=== PATIENT | male | born 1990 | race Caucasian/White ===

== ENCOUNTER 2021-10-10 18:54 | Emergency (ER) | payer OTHER ==
[2021-10-10 19:05] VITALS: BP 131/82; PULSE 90; RESP 16; TEMP 98.4
[2021-10-10] MEDS ORDERED: PENICILLIN V POTASSIUM 250 MG TAB PO STA (19:35)
[2021-10-10] MEDS ORDERED: IBUPROFEN 600 MG TAB PO STA (19:35)
--- NOTE | 2021-10-10 19:44 | ED ---
General Adult HPI - General Chief complaint: Dental/Oral Stated complaint: dental pain Time Seen by Provider: 10/10/21 19:11 Source: patient, RN notes reviewed Mode of arrival: ambulatory Limitations: no limitations - History of Present Illness Initial comments: 31-year-old male presents to the emergency department for evaluation of dental pain. Patient states he has a tooth on the right lower jaw that is bothering him. Reports he called the dentist today and was told soonest appointment available was May. Patient reports sporadic, irregular dental care. States he has several "bad teeth." Denies fever, chills, headache, difficulty swallowing, difficulty breathing, or dental trauma. - Related Data Previous Rx's Medication Instructions Recorded Ibuprofen [Motrin] 600 mg PO Q8HR PRN #30 tab 10/10/21 Penicillin V Potassium [Pen Vee K] 500 mg PO QID #40 tablet 10/10/21 Allergies Allergy/AdvReac Type Severity Reaction Status Date / Time No Known Allergies Allergy Verified 10/10/21 19:05 Review of Systems ROS Statement: Those systems with pertinent positive or pertinent negative responses have been documented in the HPI. ROS Other: All systems not noted in ROS Statement are negative. Past Medical History Past Medical History: No Reported History History of Any Multi-Drug Resistant Organisms: None Reported Past Surgical History: No Surgical Hx Reported Past Psychological History: Bipolar, Schizoaffective Disorder Smoking Status: Current every day smoker Past Alcohol Use History: Rare Past Drug Use History: None Reported General Exam Limitations: no limitations (Well-developed, well-nourished male in no acute distress. Initial temperature 98.4, pulse 90, respirations 16, blood pressure 131/82, pulse ox 97% on room air.) General appearance: alert, in no apparent distress Expanded Mouth exam: Present: normal external inspection, tongue normal. Absent: drooling, trismus, muffled voice, tongue elevation Teeth exam: Present: dental caries (#30, 31, 32), dental tenderness # (#32) Throat exam: normal inspection Neck exam: Present: normal inspection, full ROM. Absent: tenderness, meningismus, lymphadenopathy Respiratory exam: Present: normal lung sounds bilaterally. Absent: respiratory distress, wheezes, rales, rhonchi, stridor Cardiovascular Exam: Present: regular rate, normal rhythm, normal heart sounds. Absent: systolic murmur, diastolic murmur, rubs, gallop, clicks Neurological exam: Present: alert, oriented X3, CN II-XII intact Psychiatric exam: Present: normal affect, normal mood Skin exam: Present: warm, dry, intact, normal color. Absent: rash Course Vital Signs 10/10/21 19:03 Temperature 98.4 F Pulse Rate 90 Respiratory 16 Rate Blood Pressure 131/82 O2 Sat by Pulse 97 Oximetry Medical Decision Making - Medical Decision Making 31-year-old male with a past medical history of mental illness presents to the emergency department for evaluation of dental pain. Upon arrival, patient is well-appearing and in no acute distress. Vital signs are stable. He is afebrile and not tachycardic. Patient does have dental caries with tenderness at tooth #32. No traumatic injury, abscess, or facial swelling. Patient will be prescribed PenVK and given motrin for pain. He is instructed to call the dentist again for follow up care. Also provided with [facility] for an additional resource. Return parameters were discussed in detail. Patient verbalizes understanding and agrees with this plan. This patient's care was discussed with my attending . Disposition Clinical Impression: Dental caries, Dental infection Disposition: HOME SELF-CARE Condition: Stable Instructions (If sedation given, give patient instructions): Toothache (ED) Additional Instructions: Take antibiotic as directed. May take Motrin for discomfort. Oral hygiene measures such as gentle brushing of teeth and utilization of mouthwash. Follow-up with dentist as soon as possible. Contact [facility]. [facility] [place] [address]. Return to the emergency department with any new, worsening, or concerning symptoms. Prescriptions: Ibuprofen [Motrin] 600 mg PO Q8HR PRN #30 tab PRN Reason: Pain Penicillin V Potassium [Pen Vee K] 500 mg PO QID #40 tablet Is patient prescribed a controlled substance at d/c from ED?: No Referrals: None,Stated [Primary Care Provider] - 1-2 days Time of Disposition: 19:44
== END 2021-10-10 20:00 | disposition home or self-care (01) ==
LOC: EC 18:54
DX: K02.9 Dental caries, unspecified (principal); K04.7 Periapical abscess without sinus; F25.9 Schizoaffective disorder, unspecified; F31.9 Bipolar disorder, unspecified; F17.200 Nicotine dependence, unspecified, uncomplicated
CPT/HCPCS: 99282

== ENCOUNTER 2021-10-23 14:26 | Inpatient (IN) | payer MEDICAID, OTHER ==
--- NOTE | 2021-10-23 15:22 | ED ---
General Adult HPI - General Chief complaint: Psychiatric Symptoms Stated complaint: EPS eval Time Seen by Provider: 10/23/21 15:00 Source: patient, RN notes reviewed Mode of arrival: ambulatory Limitations: no limitations - History of Present Illness Initial comments: Patient is a pleasant 31-year-old male presenting to the emergency department for mental health evaluation. Patient has been depressed and had suicidal thoughts. Patient nonspecific when answering regarding plan. Patient did not sleep last night. A lujan was drinking alcohol and has been for the past month. Patient has also been using meth. No homicidal thoughts. Patient occasionally see shadows or has fears that people are watching him. - Related Data Home Medications Medication Instructions Recorded Confirmed No Known Home Medications 10/23/21 10/23/21 Allergies Allergy/AdvReac Type Severity Reaction Status Date / Time No Known Allergies Allergy Verified 10/23/21 17:21 Review of Systems ROS Statement: Those systems with pertinent positive or pertinent negative responses have been documented in the HPI. ROS Other: All systems not noted in ROS Statement are negative. Constitutional: Denies: fever Eyes: Denies: eye pain ENT: Denies: ear pain Respiratory: Denies: cough Cardiovascular: Denies: chest pain Endocrine: Denies: fatigue Gastrointestinal: Denies: abdominal pain Genitourinary: Denies: urgency Musculoskeletal: Denies: back pain Skin: Denies: rash Neurological: Denies: weakness Psychiatric: Reports: anxiety, depression, suicidal thoughts Past Medical History Past Medical History: No Reported History History of Any Multi-Drug Resistant Organisms: None Reported Past Surgical History: No Surgical Hx Reported Past Psychological History: Bipolar, Schizoaffective Disorder Smoking Status: Current every day smoker Past Alcohol Use History: Rare Past Drug Use History: None Reported General Exam Limitations: no limitations General appearance: alert, in no apparent distress Head exam: Present: normocephalic Eye exam: Present: normal appearance Neck exam: Present: normal inspection Respiratory exam: Present: normal lung sounds bilaterally Cardiovascular Exam: Present: regular rate, normal rhythm GI/Abdominal exam: Present: soft. Absent: tenderness Extremities exam: Present: normal inspection Neurological exam: Present: alert Psychiatric exam: Present: normal affect, normal mood Skin exam: Present: normal color Course Vital Signs 10/23/21 14:51 Temperature 98.0 F Pulse Rate 104 H Respiratory 20 Rate Blood Pressure 140/83 O2 Sat by Pulse 98 Oximetry Medical Decision Making - Lab Data Lab Results 10/23/21 10/23/21 Range/Units 16:37 17:45 Urine Opiates Screen Not Detected (NotDetected) Ur Oxycodone Screen Not Detected (NotDetected) Urine Methadone Screen Not Detected (NotDetected) Ur Propoxyphene Screen Not Detected (NotDetected) Ur Barbiturates Screen Not Detected (NotDetected) U Tricyclic Antidepress Not Detected (NotDetected) Ur Phencyclidine Scrn Not Detected (NotDetected) Ur Amphetamines Screen Detected H (NotDetected) U Methamphetamines Scrn Detected H (NotDetected) U Benzodiazepines Scrn Not Detected (NotDetected) Urine Cocaine Screen Not Detected (NotDetected) U Marijuana (THC) Screen Not Detected (NotDetected) Coronavirus (PCR) Not Detected (Not Detectd) Disposition Clinical Impression: Depression Disposition: ADMITTED IP TO THIS HOSP Is patient prescribed a controlled substance at d/c from ED?: No
[2021-10-23 17:06] LABS: Amphetamine Screen,Urine Detected (NotDetected); Barbiturate Screen,Urine Not Detected (NotDetected); Benzodiazepines Screen,Urine Not Detected (NotDetected); Cocaine Screen,Urine Not Detected (NotDetected); Methadone Screen, Urine Not Detected (NotDetected); Opiate Screen,Urine Not Detected (NotDetected); Oxycodone Screen, Urine Not Detected (NotDetected); Phencyclidine Screen,Urine Not Detected (NotDetected); Tricyclic Antidepressant,Urine Not Detected (NotDetected); Urn Cannabinoid Scrn Not Detected (NotDetected)
[2021-10-23] MEDS ORDERED: LORazepam 1 MG TAB PO STA (17:55)
[2021-10-23] MEDS ORDERED: ACETAMINOPHEN TAB 325 MG TAB PO PRN (22:50)
[2021-10-23] MEDS ORDERED: HALOPERIDOL LACTATE 5 MG/ML 1 ML VIAL IM PRN (22:50)
[2021-10-23] MEDS ORDERED: MAGNESIUM HYDROXIDE 2,400 MG/10 ML CUP PO PRN (22:50)
[2021-10-23] MEDS ORDERED: MAG HYDROX/AL HYDROX/SIMETH 30 ML CUP PO PRN (22:50)
[2021-10-23] MEDS ORDERED: haloperidoL 5 MG TAB PO PRN (22:52)
[2021-10-23] MEDS ORDERED: LORazepam 2 MG/ML INJ IM PRN (22:52)
[2021-10-23] MEDS ORDERED: traZODone HCL 100 MG TAB PO PRN (22:52)
[2021-10-23] MEDS: LORazepam 1 MG TAB PO PRN (22:57)
[2021-10-24] MEDS: LORazepam 1 MG TAB PO PRN ×3 (06:21→17:58)
[2021-10-24] MEDS: NICOTINE 14MG/24HR PATCH TRANSDERM SCH (08:17)
[2021-10-24] MEDS ORDERED: ZIPRASIDONE 20 MG CAP PO STA (10:59)
[2021-10-24] MEDS ORDERED: LORazepam 1 MG TAB PO PRN (11:45)
--- NOTE | 2021-10-24 11:52 | P.HP ---
Psychiatric H&P - . H&P Date: 10/24/21 History & Physical: Allergies Allergy/AdvReac Type Severity Reaction Status Date / Time No Known Allergies Allergy Verified 10/23/21 17:21 Vital Signs Temp 98.3 F 10/24/21 06:32 Pulse 103 H 10/24/21 06:32 Resp 18 10/23/21 23:01 BP 109/66 10/24/21 06:32 Pulse Ox 97 10/24/21 06:32 Intake & Output 10/23/21 10/24/21 10/24/21 18:59 06:59 18:59 Weight 77.111 kg Laboratory Last Values Urine Opiates Screen Not Detected (NotDetected) 10/23/21 16:37 Ur Oxycodone Screen Not Detected (NotDetected) 10/23/21 16:37 Urine Methadone Screen Not Detected (NotDetected) 10/23/21 16:37 Ur Propoxyphene Screen Not Detected (NotDetected) 10/23/21 16:37 Ur Barbiturates Screen Not Detected (NotDetected) 10/23/21 16:37 U Tricyclic Antidepress Not Detected (NotDetected) 10/23/21 16:37 Ur Phencyclidine Scrn Not Detected (NotDetected) 10/23/21 16:37 Ur Amphetamines Screen Detected (NotDetected) H 10/23/21 16:37 U Methamphetamines Scrn Detected (NotDetected) H 10/23/21 16:37 U Benzodiazepines Scrn Not Detected (NotDetected) 10/23/21 16:37 Urine Cocaine Screen Not Detected (NotDetected) 10/23/21 16:37 U Marijuana (THC) Screen Not Detected (NotDetected) 10/23/21 16:37 Coronavirus (PCR) Not Detected (Not Detectd) 10/23/21 17:45 10/24/21 11:52 IDENTIFYING DATA: Patient is a single, unemployed, 31-year-old male with significant history of polysubstance abuse who presented to the emergency department for mental health evaluation for increased depression and suicidal thoughts. HPI: Patient presented to the hospital on 10/23/2021 for suicidal ideation in the context of polysubstance abuse. As per EPS report, the patient reported that he was having "a rough couple of days." The patient reported that he had stopped taking his psychiatric medications approximately one month ago and he ended up using alcohol and methamphetamines because he "snapped." The patient was then asked to leave the recovery house which she was staying in. He now reports that he has had suicidal ideation with a plan to overdose or cut himself. Furthermore, the patient reports auditory hallucinations and paranoia. Upon evaluation in the psychiatric unit, the patient reports that he stopped his medications one month ago. He reports that his medications included Trileptal, trazodone, and Vistaril. He is reports that he was recently prescribed Xanax. He states that the Xanax was the medication that helped him feel the most r elaxed however does admit that he did overdose on Xanax combined with heroin in the past. The patient states that he was previously at [place] 5-6 months ago and during that admission he was diagnosed with schizoaffective disorder and discharged on a regimen including Xanax. He has been staying in a [facility] however due to his relapse into drug and alcohol use, he is now homeless. The patient is wishing to get his mental health correct in order to go to rehab so that he can return to the [facility]. In regards to mood, the patient is reporting that he feels increasingly depressed. He states that he has been having suicidal ideation. He reports that he is not sleeping and has very poor appetite. In regards to manic symptoms, the patient reports that he has very poor sleep and approximates only 3 hours of sleep per night. He does admit that he is in the context of substance use. He states that he has previously diagnosed with schizoaffective disorder. The patient does endorse significant history of psychotic symptoms. The patient reports that he experiences auditory hallucinations that are often commanding him to do things or saying mean things to him. He reports that approximately 4 years ago, he overdosed on Xanax and heroin because he heard voices telling him that he was "too p*ssy to take anything." He reported that he then overdosed or to show the voices that he was not. The patient is subsequently admitted for further evaluation and treatment. PAST PSYCHIATRIC HISTORY: Patient states that he has been previously diagnosed with schizoaffective disorder.. Patient is able to recall main previously prescribed Trileptal, trazodone, Vistaril, Seroquel, Xanax, and Ativan. He reports 1 prior psychiatric hospitalization in [place] however states that he was also hospitalized in [place]. Patient denies any psychiatric outpatient follow-up. The patient reports multiple attempts at suicide in the past. The last time being 4 years ago by an overdose on Xanax and heroin. PMH: Past Medical History: No Reported History History of Any Multi-Drug Resistant Organisms: None Reported Past Surgical History: No Surgical Hx Reported Past Psychological History: Bipolar, Schizoaffective Disorder Smoking Status: Current every day smoker Past Alcohol Use History: Rare Past Drug Use History: None Reported ALLERGIES: NO KNOWN DRUG ALLERGIES CHEMICAL DEPENDENCY HISTORY: The patient reports that he smokes 20 cigarettes per day. He admits to drinking a fifth a day of liquor for the past few weeks. He does admit that he used methamphetamines before his presentation in the hospital. He reports that his drug of choice is heroin but states it has been "a while" since he last used heroin which she does IV. The patient does admit to "speedballing" it with crack cocaine as well. FAMILY PSYCHIATRIC/SUBSTANCE USE HISTORY: The patient reports that his mother and sister have both been diagnosed with schizoaffective disorder as well. SOCIAL HISTORY: Patient is currently homeless. He was born and raised in [place], [place]. He also lives in [place] for quite some time. Prior to moving to [place] 1 month ago, the patient reports that he was living in [place] for 6-7 years. He is currently unemployed. He reports that he likes to play guitar and sing. MENTAL STATUS EXAM: General Appearance: Patient appears to be stated age is alert, directable, and attempts to cooperate. Patient appears to have slightly disheveled hygiene and grooming. Patient has numerous tattoos. Behavior: Patient is seated with elevated psychomotor activity. Speech: Patient's speech is fluent and nonpressured. Hyperverbal however nonspecific and vague. Mood/Affect: Patient reports their mood is very anxious, affect is congruent and nervous. Range of affect appears to be blunted. Suicidality/Homicidality: Patient endorses suicidal ideation but no homicidal ideation, intention, and/or plan. Perceptions: Patient denies any visual hallucinations but admits auditory hallucinations. Though content/process: The patient does report generalized paranoia towards others believing that they're constantly talking about him. Memory and concentration: AOX3, grossly intact for the purposes of this session. Can spell "WORLD" backwards Judgment and insight: poor STRENGTHS/WEAKNESSES: At this time, unable to identify patient's strengths. Weakness is that the patient engages in polysubstance abuse, has been nonadherent with medications, is currently homeless, and has no stable source of income. He also has prior attempts at suicide. INTELLECT: Below average to average IMPRESSIONS: Schizoaffective disorder, bipolar type Polysubstance abuse - including heroin, benzodiazepines, methamphetamines, and crack cocaine Nicotine dependence Alcohol use disorder PLAN: -Patient is admitted under voluntary status to [facility] for stabilization of psychiatric symptoms and safety. Patient signed adult voluntary form and medication consent and is placed in patient's chart. -Medications : Will start patient on Geodon 20 mg by mouth twice a day with meals for mood stabilization/psychosis Noonan 450 mg by mouth twice a day for mood stabilization -Ativan and Haldol PRN for agitation/aggression -CIWA protocol with Ativan PRN for ETOH withdrawal -Patient was counselled on substance abuse and desired to cut back on use. Patient wishes to go to inpatient substance abuse rehabilitation from this unit. -Patient was informed of the risks, benefits and side effects of the medication and patient verbally consented to taking the medications. Patient signed med consent form and was placed in chart. -Internal Medicine consult to perform medical evaluation and physical. -NRT - nicotine patch -SW on board for discharge planning. Encourage patient to participate in groups to work on coping skills. 10/24/21 11:52
[2021-10-24] MEDS: ZIPRASIDONE 20 MG CAP PO SCH (17:28)
--- NOTE | 2021-10-24 20:58 | P.PN ---
Progress Note - Text Progress Note Date: 10/24/21 patient refused evaluation by medicine
[2021-10-24] MEDS ORDERED: ZIPRASIDONE 20 MG CAP PO SCH (21:00)
[2021-10-24] MEDS: LITHIUM CARBONATE 150 MG CAP PO SCH (21:32)
[2021-10-25] MEDS: LORazepam 1 MG TAB PO PRN ×4 (02:04→19:57)
[2021-10-25] MEDS: NICOTINE 14MG/24HR PATCH TRANSDERM SCH (06:30)
[2021-10-25] MEDS: LITHIUM CARBONATE 150 MG CAP PO SCH (08:23)
[2021-10-25] MEDS: ZIPRASIDONE 20 MG CAP PO SCH ×2 (08:23→17:51)
[2021-10-25 10:25] LABS: Basophils # (A) 0.1 k/uL (0-0.2); Basophils % (A) 1 %; Eosinophils # (A) 0.3 k/uL (0-0.7); Eosinophils % (A) 6 %; HCT 49.1 % (39.0-53.0); HGB 16.5 gm/dL (13.0-17.5); Lymphocytes # (A) 1.8 k/uL (1.0-4.8); Lymphocytes % (A) 34 %; MCH 31.1 pg (25.0-35.0); MCHC 33.5 g/dL (31.0-37.0); MCV 92.7 fL (80.0-100.0); Mean Platelet Volume 7.7; Monocytes # (A) 0.3 k/uL (0-1.0); Monocytes % (A) 7 %; Neutrophils # (A) 2.6 k/uL (1.3-7.7); Neutrophils % (A) 50 %; Platelet Count 224 k/uL (150-450); RDW 12.4 % (11.5-15.5); WBC 5.2 k/uL (3.8-10.6)
[2021-10-25 10:38] LABS: ALT 67 U/L (4-49); AST 44 U/L (17-59); African American GFR (CKD) 78 (>60 ml/min/1.73 sqM); Albumin 4.7 g/dL (3.5-5.0); Alkaline Phosphatase 61 U/L (38-126); Anion Gap 8 mmol/L; Blood Urea Nitrogen 22 mg/dL (9-20); Calcium 9.3 mg/dL (8.4-10.2); Carbon Dioxide 29 mmol/L (22-30); Chloride 102 mmol/L (98-107); Glucose 102 mg/dL (74-99); Non-African American GFR(CKD) 67 (>60 ml/min/1.73 sqM); Potassium 4.6 mmol/L (3.5-5.1); Sodium 139 mmol/L (137-145); Total Bilirubin 0.6 mg/dL (0.2-1.3); Total Protein 8.2 g/dL (6.3-8.2)
--- NOTE | 2021-10-25 12:00 | P.PN ---
Progress Note - Text Progress Note Date: 10/25/21 Interval History: Patient was seen wandering the hallways and was directable and agreeable to speak with jingle writer in the office. The patient continues to be fixated on the thought that he has a sexually transmitted disease or that he has hepatitis C. The patient was curious as to why he has not had any blood drawn yet however review of the patient's chart reveals that the patient refused. The patient denies this however is agreeable to getting his blood drawn today. He is currently not reporting any suicidal or homicidal ideation, intention, and/or plan. He is not reporting any visual hallucinations however does endorse auditory hallucinations. He reports that they continue to be present and occasionally tell him what to do. He describes the voices as multiple voices that are clear and coherent. The patient has been adherent with his medications and is not reporting any significant side effects at this time. The patient has been noted by staff to constantly ask for Ativan for elevated anxiety. The patient has not been attending groups. He was encouraged to do so. He wishes to go to rehabilitation for his polysubstance abuse upon discharge. Mental Status Exam: General Appearance: Patient appears to be stated age is alert, directable, and cooperative. Patient has multiple tattoos. Behavior: Patient is calmly seated however displays elevated psychomotor activity. Speech: Patient's speech is fluent and nonpressured. Hyperverbal. Mood/Affect: Mood is improving mildly, affect is congruent and slightly expansive. Suicidality/Homicidality: Patient denies having any suicidal or homicidal ideation intent or plan. Perceptions: Patient denies any visual hallucinations however endorses auditory hallucinations. Though content/process: The patient is not endorsing any delusional thought content today. Thought process space to be linear and goal-directed at this time. Memory and concentration: AOX3, grossly intact for the purposes of this session Judgment and insight: Improving mildly Vital Signs Temp 97.9 F 10/25/21 02:06 Pulse 100 10/25/21 08:21 Resp 15 10/25/21 02:06 BP 145/77 10/25/21 08:21 Pulse Ox 97 10/24/21 06:32 Laboratory Results - Last 24 Hours 10/25/21 10/25/21 09:49 09:49 WBC 5.2 RBC 5.30 Hgb 16.5 Hct 49.1 MCV 92.7 MCH 31.1 MCHC 33.5 RDW 12.4 Plt Count 224 MPV 7.7 Neutrophils % 50 Lymphocytes % 34 Monocytes % 7 Eosinophils % 6 Basophils % 1 Neutrophils # 2.6 Lymphocytes # 1.8 Monocytes # 0.3 Eosinophils # 0.3 Basophils # 0.1 Sodium 139 Potassium 4.6 Chloride 102 Carbon Dioxide 29 Anion Gap 8 BUN 22 H Creatinine 1.39 H Est GFR (CKD-EPI)AfAm 78 Est GFR (CKD-EPI)NonAf 67 Glucose 102 H Calcium 9.3 Total Bilirubin 0.6 AST 44 ALT 67 H Alkaline Phosphatase 61 Total Protein 8.2 Albumin 4.7 TSH 2.070 Assessment Schizoaffective disorder, bipolar type Polysubstance abuse - including heroin, benzodiazepines, methamphetamines, and crack cocaine Nicotine dependence Alcohol use disorder Plan: -Patient continues to meet criteria for inpatient psychiatric admission for sy mptom stabilization and safety. Patient has signed adult voluntary form and medication consent and was placed in patient's chart. -Medications: Increase Geodon to 40 mg by mouth twice a day with meals for mood stabilization/psychosis Increase lithium to 450 mg by mouth every morning and 600 mg by mouth daily at bedtime for mood stabilization -When necessary Ativan and Haldol for agitation/aggression. -NRT - nicotine patch -SW on board for discharge planning. Encouraged the patient to participate in milieu.
--- NOTE | 2021-10-25 18:18 | P.HPMEDMHU ---
History of Present Illness Patient is a 31-year-old male with a leg which is significant for polysubstance abuse with crack, cocaine, alcohol, methamphetamine, acid, and other drugs that presents to hospital due to suicidal ideation. Patient was examined at bedside today not complaining of any shortness of breath, chest pain or palpitations. Internal medicine was consulted for medical management. Past Medical History Past Medical History: No Reported History History of Any Multi-Drug Resistant Organisms: None Reported Past Surgical History: No Surgical Hx Reported Past Psychological History: Bipolar, Schizoaffective Disorder Smoking Status: Current every day smoker Past Alcohol Use History: Rare Past Drug Use History: None Reported Medications and Allergies Home Medications Medication Instructions Recorded Confirmed Type No Known Home Medications 10/23/21 10/23/21 History Allergies Allergy/AdvReac Type Severity Reaction Status Date / Time No Known Allergies Allergy Verified 10/23/21 17:21 Physical Exam Vitals: Vital Signs Temp Pulse Resp BP 10/25/21 08:21 100 145/77 10/25/21 02:06 97.9 F 96 15 115/86 Gen. patient is awake alert oriented 3 Cardiovascular normal S1/S2 heard Respiratory normal air entry, no wheezing or rhonchi appreciated Abdomen soft, nontender Extremities no pitting edema Psychiatry patient is slightly anxious during my examination however appropriate Cranial Nerve Examination - Cranial Nerves Cranial Nerve I- Olfactory: Intact Cranial Nerve II- Optic: Intact Cranial Nerve III- Oculomotor: Intact Cranial Nerve IV- Trochlear: Intact Cranial Nerve V- Trigeminal: Intact Cranial Nerve - Abducens: Intact Cranial Nerve VII- Facial: Intact Cranial Nerve VIII- Auditory: Intact Cranial Nerve IX- Glossopharyngeal: Intact Cranial Nerve X- Vagus: Intact Cranial Nerve XI- Accessory: Intact Cranial Nerve XII- Hypoglossal: Intact Results CBC & Chem 7: 10/25/21 09:49 10/25/21 09:49 Labs: Abnormal Lab Results - Last 24 Hours (Table) 10/25/21 10/25/21 Range/Units 09:49 09:49 BUN 22 H (9-20) mg/dL Creatinine 1.39 H (0.66-1.25) mg/dL Glucose 102 H (74-99) mg/dL ALT 67 H (4-49) U/L Hep C IgG Ab Reactive A (Nonreactive) Assessment and Plan Assessment: Assessment: #1 suicidal ideation #2 schizoaffective disorder bipolar type #3 significant polysubstance abuse including heroin, methamphetamines, crack cocaine, acid #4 alcohol dependence #5 nicotine dependence #6 acute kidney injury #7 transaminitis Plan -From medical standpoint of view continue management as per primary tea m/psychiatry. -Recommend IV hydration with fluids and monitor creatinine until normalized. This is most likely related to polysubstance abuse -Regarding transaminitis most likely elevated to 2 polysubstance abuse -Patient also does have hepatitis C IgG antibody positive that needs to be followed up outpatient with PCP. This can also explain the slight elevation in ELT -Recommend IV hydration with normal saline if appropriate on behavioral medicine unit 100 mL an hour for 24 hours and monitor creatinine level. -If you have any questions please do not hesitate to contact us at an time.
[2021-10-25] MEDS ORDERED: LITHIUM CARBONATE 300 MG CAP PO SCH (21:00)
[2021-10-26] MEDS: LORazepam 1 MG TAB PO PRN ×2 (02:11→08:59)
[2021-10-26 03:28] VITALS: BP 110/80; PULSE 105; RESP 14; TEMP 97
[2021-10-26] MEDS: NICOTINE 14MG/24HR PATCH TRANSDERM SCH ×2 (08:36→08:37)
[2021-10-26] MEDS: ZIPRASIDONE 20 MG CAP PO SCH (08:36)
[2021-10-26] MEDS ORDERED: LITHIUM CARBONATE 150 MG CAP PO SCH (09:00)
--- NOTE | 2021-10-26 10:20 | P.PN ---
Progress Note - Text Progress Note Date: 10/26/21 Interval History: Patient was seen wandering the hallways and was directable and agreeable to speak with comic book writer in the office. The patient expresses a desire to go into [facility] and for rehabilitation. He states that he feels like he is ready to go now. He is currently not reporting any suicidal or homicidal ideation, intention, and/or plan. He is not reporting any auditory hallucinations but does state that he is experiencing some visual hallucinations in the form shadow people. He is denying any paranoia or other delusions at this time. The patient has been adherent with his medications and is not reporting any significant side effects. 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 Mental Status Exam: General Appearance: Patient appears to be stated age is alert, directable, and cooperative. Patient has multiple tattoos. Behavior: Patient is calmly seated however displays elevated psychomotor activity. Speech: Patient's speech is fluent and nonpressured. Hyperverbal. Mood/Affect: Mood is improving mildly, affect is congruent and slightly expansive. Suicidality/Homicidality: Patient denies having any suicidal or homicidal ideation intent or plan. Perceptions: Patient denies any visual hallucinations however endorses auditory hallucinations. Though content/process: The patient is not endorsing any delusional thought content today. Thought process space to be linear and goal-directed at this time. Memory and concentration: AOX3, grossly intact for the purposes of this session Judgment and insight: Improving mildly Vital Signs Temp 97.0 F L 10/26/21 02:11 Pulse 105 H 10/26/21 02:11 Resp 14 10/26/21 02:11 BP 110/80 10/26/21 02:11 Pulse Ox 97 10/24/21 06:32 Laboratory Results - Last 24 Hours 10/25/21 10/25/21 10/25/21 09:49 09:49 09:49 WBC 5.2 RBC 5.30 Hgb 16.5 Hct 49.1 MCV 92.7 MCH 31.1 MCHC 33.5 RDW 12.4 Plt Count 224 MPV 7.7 Neutrophils % 50 Lymphocytes % 34 Monocytes % 7 Eosinophils % 6 Basophils % 1 Neutrophils # 2.6 Lymphocytes # 1.8 Monocytes # 0.3 Eosinophils # 0.3 Basophils # 0.1 Sodium 139 Potassium 4.6 Chloride 102 Carbon Dioxide 29 Anion Gap 8 BUN 22 H Creatinine 1.39 H Est GFR (CKD-EPI)AfAm 78 Est GFR (CKD-EPI)NonAf 67 Glucose 102 H Calcium 9.3 Total Bilirubin 0.6 AST 44 ALT 67 H Alkaline Phosphatase 61 Total Protein 8.2 Albumin 4.7 TSH 2.070 Hep C IgG Ab Reactive A Assessment Schizoaffective disorder, bipolar type Polysubstance abuse - including heroin, benzodiazepines, methamphetamines, and crack cocaine Nicotine dependence Alcohol use disorder Plan: -Patient continues to meet criteria for inpatient psychiatric admission for symptom stabilization and safety. Patient has signed adult voluntary form and m edication consent and was placed in patient's chart. -Medications: Continue Geodon to 40 mg by mouth twice a day with meals for mood stabilization/psychosis Continue Willamina to 450 mg by mouth every morning and 600 mg by mouth daily at bedtime for mood stabilization. Willamina level to be drawn today. -When necessary Ativan and Haldol for agitation/aggression. -NRT - nicotine patch -SW on board for discharge planning. Encouraged the patient to participate in milieu.
--- NOTE | 2021-10-26 11:06 | P.DS ---
Providers Date of admission: 10/23/21 22:22 Expected date of discharge: 10/26/21 Attending physician: Suleman Taylor MD Consults: 10/23/21 22:50 Consult Physician Routine Consulting Provider: Ayad Gibson Consult Reason/Comments: H&P and medical Do you want consulting provider notified?: Yes Primary care physician: Stated None - Discharge Diagnosis(es) (1) Schizoaffective disorder, bipolar type Current Visit: Yes Status: Acute Priority: High (2) Polysubstance dependence including opioid type drug, episodic abuse Current Visit: Yes Status: Acute Priority: High (3) Nicotine dependence Current Visit: Yes Status: Chronic Priority: Medium (4) Alcohol use disorder Current Visit: Yes Status: Chronic Priority: Medium Hospital Course: Admission HPI: Patient is a single, unemployed, 31-year-old male with significant history of polysubstance abuse who presented to the emergency department for mental health evaluation for increased depression and suicidal thoughts. Patient presented to the hospital on 10/23/2021 for suicidal ideation in the context of polysubstance abuse. As per EPS report, the patient reported that he was having "a rough couple of days." The patient reported that he had stopped taking his psychiatric medications approximately one month ago and he ended up using alcohol and methamphetamines because he "snapped." The patient was then asked to leave the recovery house which she was staying in. He now reports that he has had suicidal ideation with a plan to overdose or cut himself. Furthermore, the patient reports auditory hallucinations and paranoia. Upon evaluation in the psychiatric unit, the patient reports that he stopped his medications one month ago. He reports that his medications included Trileptal, trazodone, and Vistaril. He is reports that he was recently prescribed Xanax. He states that the Xanax was the medication that helped him feel the most relaxed however does admit that he did overdose on Xanax combined with heroin in the past. The patient states that he was previously at [place] 5-6 months ago and during that admission he was diagnosed with schizoaffective disorder and discharged on a regimen including Xanax. He has been staying in a [facility] however due to his relapse into drug and alcohol use, he is now homeless. The patient is wishing to get his mental health correct in order to go to rehab so that he can return to the [facility]. In regards to mood, the patient is reporting that he feels increasingly depressed. He states that he has been having suicidal ideation. He reports that he is not sleeping and has very poor appetite. In regards to manic symptoms, the patient reports that he has very poor sleep and approximates only 3 hours of sleep per night. He does admit that he is in the context of substance use. He states that he has previously diagnosed with schizoaffective disorder. The patient does endorse significant history of psychotic symptoms. The patient reports that he experiences auditory hallucinations that are often commanding him to do things or saying mean things to him. He reports that approximately 4 years ago, he overdosed on Xanax and heroin because he heard voices telling him that he was "too p*ssy to take anything." He reported that he then overdosed or to show the voices that he was not. The patient is subsequently admitted for further evaluation and treatment. Patient states that he has been previously diagnosed with schizoaffective disorder.. Patient is able to recall main previously prescribed Trileptal, trazodone, Vistaril, Seroquel, Xanax, and Ativan. He reports 1 prior psychiatric hospitalization in [place] however states that he was also hospitalized in [place]. Patient denies any psychiatric outpatient follow-up. The patient reports multiple attempts at suicide in the past. The last time being 4 years ago by an overdose on Xanax and heroin. Hospital course: Upon admission to the unit patient was initially presenting to elevated psychomotor activity and a very anxious mood. Patient was however directable and agreeable to commence treatment. Patient got along well with other patients on the unit and followed unit protocol. Patient was compliant with the medications and denied any side effects throughout hospital course. Patient was started on Geodon for mood stabilization and psychosis as well as lithium for mood stabilization. The patient endorsed command type auditory hallucinations. Over the course the hospitalization, the patient has been adherent with his medications and tolerated medications well. Had a significant improvement in his focus and was much more linear and logical and conversation. Furthermore, the patient reported a significant decrease in his auditory hallucinations and paranoia. The patient has been noted by staff to be constantly asking for Ativan. On the day of discharge, the patient is not reporting any suicidal or homicidal ideation, intention,/or plan. He is not reporting any auditory hallucinations but reports he has visual hallucinations in the form shadow people. He is otherwise not reporting any paranoia or other delusions this time. The patient remains future oriented. He states that he is currently homeless lovers wanting to go to rehab. When the patient was informed that he'll be discharged, he begins asking for Xanax. He was informed that he will not be prescribed any Xanax or Ativan. Patient becomes quite irritable. However, the patient does continue to present his future oriented and states that he would like to go to [place] because they have "better homeless shelters there." As the patient no longer met criteria for inpatient psychiatric admission, he was subsequently discharged. Mental status exam: General Appearance: Patient appears to be stated age is alert, demanding, but cooperative. Patient is in no acute distress and has fair hygiene and grooming. The patient has multiple tattoos. Behavior: Patient is calmly seated without any agitated behavior. Speech: Patient's speech is fluent and nonpressured. Spontaneous. Mood/Affect: Patient reports their mood is "I need some Xanax", affect is euthymic with full range. Suicidality/Homicidality: Patient denies having any suicidal or homicidal ideation intent or plan. Perceptions: Patient denies any auditory however reports visual hallucinations in the form of shadows. Though content/process: There is no evidence of any delusional thought content and thought process is linear and goal-directed. The patient is future oriented. Memory and concentration: AOX3, grossly intact for the purposes of this session. Can spell "WORLD" backwards correctly. Judgment and insight: Improved with guarded prognosis Vital Signs Temp 97.0 F L 10/26/21 02:11 Pulse 105 H 10/26/21 02:11 Resp 14 10/26/21 02:11 BP 110/80 10/26/21 02:11 Pulse Ox 97 10/24/21 06:32 Laboratory Results - Last 24 Hours 10/25/21 10/25/21 09:49 09:49 TSH 2.070 Hep C IgG Ab Reactive A Impression: Schizoaffective disorder, bipolar type Polysubstance abuse - including heroin, benzodiazepines, methamphetamines, and crack cocaine Nicotine dependence Alcohol use disorder Plan: -Continue with discharge today as patient has improved and stabilized psychiatrically and is not currently an imminent threat to himself and/or others. Patient will remain at chronically elevated risk for harm to self and/or others due to his impulsivity and polysubstance abuse. -Continue medications: Geodon 40 mg by mouth twice a day with meals with stabilization/psychosis Altheimer 450 mg by mouth every morning and 600 mg by mouth daily at bedtime for mood stabilization. Altheimer level is pending. Mild elevation in BUN and Cr. Patient made aware and informed to stay hydrated and to follow-up with his outpatient psychiatrist. Patient acknowledges. -Patient was counseled on the need for medication compliance and appropriate follow-up at mental health and also primary care for medical issues. Patient verbalized understanding and agreed. -Social work to arrange for and conduct family meeting to ensure safety upon discharge and answer any questions/concerns. Social work also to arrange for patients follow up appointments for psychiatric care along with follow up with primary care provider. -Patient counseled on abstaining from recreational drugs and marijuana and alcohol. Was informed/educated on the adverse effects on their physical and mental health. Patient verbally agreed and understood. Patient is desiring to go to inpatient substance abuse rehabilitation harm. No longer meets criteria for continued inpatient psychiatric hospitalization. Was informed to pursue his rehab from the outpatient setting. -Patient was instructed to return to the hospital or seek immediate medical care if their psychiatric or medical symptoms do worsen or reoccur. -Psychoeducation and supportive therapy provided to patient. Risks and benefits of pharmacological treatment versus the risks and benefits of nontreatment weight and discussed. Informed consent discussion held. Common side effects of psychotropics discussed such as, but not limited to headache, GI disturbance, sexual dysfunction, movement disorders, sedation, and orthostatic hypotension. Life threatening and blackbox warnings of prescribed medications also discussed. Potential risks of operating a vehicle or heavy machinery discussed with patient at length. Advised on importance of compliance and a reliable and responsible manner. Patient advised to review FDA consumer labeling of all medications prior to taking. Patient verbalized understanding of potential risks, and agrees with current treatment plan. Patient advised to medically contact physician/emergency personnel if any acute changes in condition occur. Laboratory Results WBC 5.2 k/uL (3.8-10.6) 10/25/21 09:49 RBC 5.30 m/uL (4.30-5.90) 10/25/21 09:49 Hgb 16.5 gm/dL (13.0-17.5) 10/25/21 09:49 Hct 49.1 % (39.0-53.0) 10/25/21 09:49 MCV 92.7 fL (80.0-100.0) 10/25/21 09:49 MCH 31.1 pg (25.0-35.0) 10/25/21 09:49 MCHC 33.5 g/dL (31.0-37.0) 10/25/21 09:49 RDW 12.4 % (11.5-15.5) 10/25/21 09:49 Plt Count 224 k/uL (150-450) 10/25/21 09:49 MPV 7.7 10/25/21 09:49 Neutrophils % 50 % 10/25/21 09:49 Lymphocytes % 34 % 10/25/21 09:49 Monocytes % 7 % 10/25/21 09:49 Eosinophils % 6 % 10/25/21 09:49 Basophils % 1 % 10/25/21 09:49 Neutrophils # 2.6 k/uL (1.3-7.7) 10/25/21 09:49 Lymphocytes # 1.8 k/uL (1.0-4.8) 10/25/21 09:49 Monocytes # 0.3 k/uL (0-1.0) 10/25/21 09:49 Eosinophils # 0.3 k/uL (0-0.7) 10/25/21 09:49 Basophils # 0.1 k/uL (0-0.2) 10/25/21 09:49 Sodium 139 mmol/L (137-145) 10/25/21 09:49 Potassium 4.6 mmol/L (3.5-5.1) 10/25/21 09:49 Chloride 102 mmol/L (98-107) 10/25/21 09:49 Carbon Dioxide 29 mmol/L (22-30) 10/25/21 09:49 Anion Gap 8 mmol/L 10/25/21 09:49 BUN 22 mg/dL (9-20) H 10/25/21 09:49 Creatinine 1.39 mg/dL (0.66-1.25) H 10/25/21 09:49 Est GFR (CKD-EPI)AfAm 78 (>60 ml/min/1.73 sqM) 10/25/21 09:49 Est GFR (CKD-EPI)NonAf 67 (>60 ml/min/1.73 sqM) 10/25/21 09:49 Glucose 102 mg/dL (74-99) H 10/25/21 09:49 Calcium 9.3 mg/dL (8.4-10.2) 10/25/21 09:49 Total Bilirubin 0.6 mg/dL (0.2-1.3) 10/25/21 09:49 AST 44 U/L (17-59) 10/25/21 09:49 ALT 67 U/L (4-49) H 10/25/21 09:49 Alkaline Phosphatase 61 U/L (38-126) 10/25/21 09:49 Total Protein 8.2 g/dL (6.3-8.2) 10/25/21 09:49 Albumin 4.7 g/dL (3.5-5.0) 10/25/21 09:49 TSH 2.070 mIU/L (0.465-4.680) 10/25/21 09:49 Urine Opiates Screen Not Detected (NotDetected) 10/23/21 16:37 Ur Oxycodone Screen Not Detected (NotDetected) 10/23/21 16:37 Urine Methadone Screen Not Detected (NotDetected) 10/23/21 16:37 Ur Propoxyphene Screen Not Detected (NotDetected) 10/23/21 16:37 Ur Barbiturates Screen Not Detected (NotDetected) 10/23/21 16:37 U Tricyclic Antidepress Not Detected (NotDetected) 10/23/21 16:37 Ur Phencyclidine Scrn Not Detected (NotDetected) 10/23/21 16:37 Ur Amphetamines Screen Detected (NotDetected) H 10/23/21 16:37 U Methamphetamines Scrn Detected (NotDetected) H 10/23/21 16:37 U Benzodiazepines Scrn Not Detected (NotDetected) 10/23/21 16:37 Urine Cocaine Screen Not Detected (NotDetected) 10/23/21 16:37 U Marijuana (THC) Screen Not Detected (NotDetected) 10/23/21 16:37 Coronavirus (PCR) Not Detected (Not Detectd) 10/23/21 17:45 Hep C IgG Ab Reactive (Nonreactive) A 10/25/21 09:49 Allergies Allergy/AdvReac Type Severity Reaction Status Date / Time No Known Allergies Allergy Verified 10/23/21 17:21 Patient Condition at Discharge: Stable Plan - Discharge Summary Discharge Rx Participant: No New Discharge Prescriptions: New Altheimer Carbonate 450 mg PO DAILY 30 Days cap Altheimer Carbonate 600 mg PO HS 30 Days cap traZODone HCL [Desyrel] 100 mg PO HS PRN 30 Days tab PRN Reason: Insomnia Ziprasidone [Geodon] 40 mg PO BID-W/MEALS 30 Days cap Discharge Medication List Altheimer Carbonate 450 mg PO DAILY 30 Days cap 10/26/21 [Rx] Altheimer Carbonate 600 mg PO HS 30 Days cap 10/26/21 [Rx] Ziprasidone [Geodon] 40 mg PO BID-W/MEALS 30 Days cap 10/26/21 [Rx] traZODone HCL [Desyrel] 100 mg PO HS PRN 30 Days tab 10/26/21 [Rx] Follow up Appointment(s)/Referral(s): None,Stated [Primary Care Provider] - 1-2 days Activity/Diet/Wound Care/Special Instructions: Activity and diet as tolerated. Avoid the use of street drugs and alcohol. Take all medications as prescribed. When you are in need of refills on your medications please contact your medical provider and/or outpatient psychiatrist to have this done. Please go to scheduled outpatient appointment for aftercare treatment. If symptoms return or become worse, call the crisis line at and/or go to the nearest emergency room for evaluation Discharge Disposition: HOME SELF-CARE
== END 2021-10-26 14:00 | disposition home or self-care (01) | DRG 885 ==
LOC: EC 14:26 → 3MHU 22:22
PROVIDERS: ADMIT Psychiatry & Neurology Psychiatry; ATTEND Psychiatry & Neurology Psychiatry
PROC: HZ2ZZZZ Detoxification Services for Substance Abuse Treatment (ICD-10-PCS; principal; 2021-10-23)
DX: F25.0 Schizoaffective disorder, bipolar type (principal); F19.20 Other psychoactive substance dependence, uncomplicated; N17.9 Acute kidney failure, unspecified; F41.9 Anxiety disorder, unspecified; F13.10 Sedative, hypnotic or anxiolytic abuse, uncomplicated; F14.10 Cocaine abuse, uncomplicated; Z59.00 Homelessness unspecified; F17.210 Nicotine dependence, cigarettes, uncomplicated; B19.20 Unspecified viral hepatitis C without hepatic coma; T40.1X2A Poisoning by heroin, intentional self-harm, initial encounter; T42.4X2A Poisoning by benzodiazepines, intentional self-harm, initial encounter; Z56.0 Unemployment, unspecified; Z20.822 Contact with and (suspected) exposure to COVID-19; R74.01 Elevation of levels of liver transaminase levels; F10.20 Alcohol dependence, uncomplicated; Z71.51 Drug abuse counseling and surveillance of drug abuser; Z71.41 Alcohol abuse counseling and surveillance of alcoholic
CPT/HCPCS: 80053; 80178; 80306; 82075; 84443; 85025; 86803; 87635; 99285